=== PATIENT | female | born 1945 | race Caucasian/White ===

== ENCOUNTER 2022-12-14 13:17 | Outpatient (CLI) | payer MEDICARE | END 2022-12-14 13:18 | disposition home or self-care (01) | LOC: CSHMAMMO 13:17 | PROVIDERS: ATTEND Internal Medicine Rheumatology | DX: M81.0 Age-related osteoporosis without current pathological fracture (principal); M46.1 Sacroiliitis, not elsewhere classified | CPT/HCPCS: 72070; 72202; 77080 ==

== ENCOUNTER 2022-12-14 14:14 | Outpatient (CLI) | payer MEDICARE | END 2022-12-14 14:15 | disposition home or self-care (01) | LOC: CSHRAD 14:14 | PROVIDERS: ATTEND Internal Medicine Rheumatology | DX: M46.1 Sacroiliitis, not elsewhere classified (principal); M81.0 Age-related osteoporosis without current pathological fracture | CPT/HCPCS: 72070; 72202 ==